=== PATIENT | female | born 1955 | race African-American/Black ===

== ENCOUNTER 2021-12-13 14:24 | Outpatient (CLI) | payer MEDICARE, BC, SELFPAY ==
[2021-12-13 17:11] LABS: Hemoglobin A1C 5.5 % (<5.7)
[2021-12-14 00:23] LABS: Thyroid Stimulating Hormone 0.881 uIU/mL (0.465-4.680)
[2021-12-15 13:56] LABS: Triiodothyronine T3 Free 3.7 pg/mL (2.3-4.2)
== END 2021-12-13 14:25 | disposition home or self-care (01) ==
LOC: ANHWCLAB 14:30
PROVIDERS: PCP Family Medicine; Visit Provider Internal Medicine Endocrinology, Diabetes & Metabolism
DX: E04.9 Nontoxic goiter, unspecified (principal); E89.0 Postprocedural hypothyroidism; R73.03 Prediabetes; R79.89 Other specified abnormal findings of blood chemistry; Z78.0 Asymptomatic menopausal state
CPT/HCPCS: 36415; 83036; 84443; 84481

== ENCOUNTER 2024-01-22 11:25 | Outpatient (CLI) | payer MEDICARE, BC, SELFPAY ==
[2024-01-22 13:53] LABS: Free T4 Free Thyroxine 1.76 ng/mL (0.78-2.19)
[2024-01-22 14:08] LABS: Hemoglobin A1C 5.6 % (<5.7)
== END 2024-01-22 11:26 | disposition home or self-care (01) ==
LOC: ANHWCLAB 11:26
PROVIDERS: PCP Family Medicine; Visit Provider Internal Medicine Endocrinology, Diabetes & Metabolism
DX: L65.9 Nonscarring hair loss, unspecified (principal); E03.9 Hypothyroidism, unspecified; R73.03 Prediabetes; R79.89 Other specified abnormal findings of blood chemistry
CPT/HCPCS: 36415; 83036; 84439; 84443